=== PATIENT | female | born 1980 | race Two or more races ===

== ENCOUNTER 2020-05-05 05:56 | Observation (INO) | payer BC ==
[2020-05-05] MEDS ORDERED: Alum Hydrox/Mag Hydrox/Simeth 15 ML, Lidocaine 2% 15 ML PO ONE ×2 (06:54)
[2020-05-05] MEDS ORDERED: Ondansetron 4 MG/2 ML SDV IVPUSH ONE (06:54)
[2020-05-05] MEDS: Sodium Chloride 0.9% 10 ML Syringe FLUSH PRN ×3 (07:09→07:44)
[2020-05-05] MEDS ORDERED: fentaNYL 100 MCG/2 ML SDV IVPUSH ONE ×2 (07:11→09:31)
--- NOTE | 2020-05-05 07:15 | EDM.PDOC ---
ED HPI GENERAL MEDICAL PROBLEM - General Chief Complaint: Abdominal Pain Stated Complaint: ABDOMINAL PAIN Time Seen by Provider: 05/05/20 07:06 Source of Information: Reports: Patient, RN Notes Reviewed History Limitations: Reports: No Limitations - History of Present Illness INITIAL COMMENTS - FREE TEXT/NARRATIVE: 39-year-old female presents emergency department a complaint of epigastric pain, she has a history of gastric bypass done approximately 9 months prior. She states the pain started about 24 hours ago it does wax and wane it is in the epigastric region she has had some dry heaves and is nauseated. 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 Female Surgical History: Reports: Section Musculoskeletal Surgical History: Reports: Other (See Below) Other Musculoskeletal Surgeries/Procedures:: acl repair Social & Family History - Tobacco Use Smoking Status *Q: Former Smoker Used Tobacco, but Quit: No Second Hand Smoke Exposure: No - Caffeine Use Caffeine Use: Reports: None - Recreational Drug Use Recreational Drug Use: No ED ROS GENERAL - Review of Systems Review Of Systems: See Below Constitutional: Reports: No Symptoms Respiratory: Reports: No Symptoms Cardiovascular: Reports: No Symptoms GI/Abdominal: Reports: Abdominal Pain, Flatus, Nausea, Vomiting : Reports: No Symptoms ED EXAM, GI/ABD - Physical Exam Exam: See Below Exam Limited By: No Limitations General Appearance: Alert, WD/WN, No Apparent Distress Neck: Normal Inspection, Supple, Non-Tender, Full Range of Motion Respiratory/Chest: No Respiratory Distress, Lungs Clear, Normal Breath Sounds, No Accessory Muscle Use, Chest Non-Tender Cardiovascular: Regular Rate, Rhythm, No Murmur GI/Abdominal Exam: Normal Bowel Sounds, Soft, No Organomegaly, No Distention, Tender (Epigastric region) Course - Vital Signs Last Recorded V/S: Last Vital Signs Temp 96.4 F L 05/05/20 06:52 Pulse 42 L 05/05/20 09:01 Resp 16 05/05/20 06:52 BP 140/48 L 05/05/20 09:01 Pulse Ox 96 05/05/20 09:01 - Orders/Labs/Meds Orders: Active Orders 24 hr Category Date Time Status Sodium Chloride 0.9% [Normal Saline] 100 ml Med 05/05/20 07:30 Active IV ASDIRECTED Sodium Chloride 0.9% [Saline Flush] Med 05/05/20 06:53 Active 10 ml FLUSH ASDIRECTED PRN Saline Lock Insert [OM.PC] Routine Oth 05/05/20 06:53 Ordered Medication Orders Sodium Chloride (Normal Saline) 100 mls @ 3 mls/sec IV ASDIRECTED ROSALINDA Last Admin: 05/05/20 07:44 Dose: 3 mls/sec Documented by: MAYTE Sodium Chloride (Saline Flush) 10 ml FLUSH ASDIRECTED PRN PRN Reason: Keep Vein Open Last Admin: 05/05/20 07:44 Dose: 10 ml Documented by: Admin: 05/05/20 07:26 Dose: 10 ml Documented by: Admin: 05/05/20 07:09 Dose: 10 ml Documented by: DAE Labs: Laboratory Tests 05/05/20 05/05/20 05/05/20 Range/Units 07:12 07:12 07:13 WBC 7.3 (4.5-11.0) K/uL RBC 4.53 (3.30-5.50) M/uL Hgb 13.3 (12.0-15.0) g/dL Hct 40.9 (36.0-48.0) % MCV 90 (80-98) fL MCH 29 (27-31) pg MCHC 33 (32-36) % Plt Count 233 (150-400) K/uL Neut % (Auto) 68 H (36-66) % Lymph % (Auto) 24 (24-44) % [place] % (Auto) 6 (2-6) % Eos % (Auto) 2 (2-4) % Baso % (Auto) 0 (0-1) % Sodium 142 (140-148) mmol/L Potassium 4.1 (3.6-5.2) mmol/L Chloride 105 (100-108) mmol/L Carbon Dioxide 27 (21-32) mmol/L Anion Gap 9.6 (5.0-14.0) mmol/L BUN 14 (7-18) mg/dL Creatinine 1.0 (0.6-1.0) mg/dL Est Cr Clr Drug Dosing 70.71 mL/min Estimated GFR (MDRD) > 60 (>60) Glucose 92 (74-106) mg/dL Lactic Acid (0.4-2.0) mmol/L Calcium 8.4 L (8.5-10.1) mg/dL Total Bilirubin 0.5 (0.2-1.0) mg/dL AST 37 (15-37) U/L ALT 37 (12-78) U/L Alkaline Phosphatase 95 (46-116) U/L Troponin I (0.000-0.056) ng/mL Total Protein 7.7 (6.4-8.2) g/dL Albumin 3.6 (3.4-5.0) g/dL Globulin 4.1 H (2.3-3.5) g/dL Albumin/Globulin Ratio 0.9 L (1.2-2.2) Lipase 114 (73-393) U/L Urine Color (YELLOW) Urine Appearance (CLEAR) Urine pH (5.0-8.0) Ur Specific [place] (1.008-1.030) Urine Protein (NEGATIVE) mg/dL Urine Glucose (UA) (NEGATIVE) mg/dL Urine Ketones (NEGATIVE) mg/dL Urine Occult Blood (NEGATIVE) Urine Nitrite (NEGATIVE) Urine Bilirubin (NEGATIVE) Urine Urobilinogen (0.2-1.0) EU/dL Ur Leukocyte Esterase (NEGATIVE) Urine RBC (0-5) Urine WBC (0-5) Ur Epithelial Cells Amorphous Sediment Urine Bacteria Urine Mucus Urine HCG, Qual Negative 05/05/20 05/05/20 05/05/20 Range/Units 07:15 07:15 09:20 WBC (4.5-11.0) K/uL RBC (3.30-5.50) M/uL Hgb (12.0-15.0) g/dL Hct (36.0-48.0) % MCV (80-98) fL MCH (27-31) pg MCHC (32-36) % Plt Count (150-400) K/uL Neut % (Auto) (36-66) % Lymph % (Auto) (24-44) % [place] % (Auto) (2-6) % Eos % (Auto) (2-4) % Baso % (Auto) (0-1) % Sodium (140-148) mmol/L Potassium (3.6-5.2) mmol/L Chloride (100-108) mmol/L Carbon Dioxide (21-32) mmol/L Anion Gap (5.0-14.0) mmol/L BUN (7-18) mg/dL Creatinine (0.6-1.0) mg/dL Est Cr Clr Drug Dosing mL/min Estimated GFR (MDRD) (>60) Glucose (74-106) mg/dL Lactic Acid 1.0 (0.4-2.0) mmol/L Calcium (8.5-10.1) mg/dL Total Bilirubin (0.2-1.0) mg/dL AST (15-37) U/L ALT (12-78) U/L Alkaline Phosphatase (46-116) U/L Troponin I < 0.017 (0.000-0.056) ng/mL Total Protein (6.4-8.2) g/dL Albumin (3.4-5.0) g/dL Globulin (2.3-3.5) g/dL Albumin/Globulin Ratio (1.2-2.2) Lipase (73-393) U/L Urine Color Yellow (YELLOW) Urine Appearance Slightly cloudy A (CLEAR) Urine pH 6.5 (5.0-8.0) Ur Specific [place] 1.015 (1.008-1.030) Urine Protein Negative (NEGATIVE) mg/dL Urine Glucose (UA) Negative (NEGATIVE) mg/dL Urine Ketones Negative (NEGATIVE) mg/dL Urine Occult Blood Negative (NEGATIVE) Urine Nitrite Negative (NEGATIVE) Urine Bilirubin Negative (NEGATIVE) Urine Urobilinogen 0.2 (0.2-1.0) EU/dL Ur Leukocyte Esterase Negative (NEGATIVE) Urine RBC 0-5 (0-5) Urine WBC 0-5 (0-5) Ur Epithelial Cells Moderate Amorphous Sediment Not seen Urine Bacteria Moderate Urine Mucus Moderate Urine HCG, Qual Meds: Medications Generic Name Dose Route Start Last Admin Trade Name Freq PRN Reason Stop Dose Admin Sodium Chloride 100 mls @ 3 mls/sec 05/05/20 07:30 05/05/20 07:44 Normal Saline IV 3 mls/sec ASDIRECTED ROSALINDA Administration Sodium Chloride 10 ml 05/05/20 06:53 05/05/20 07:44 Saline Flush FLUSH 10 ml ASDIRECTED PRN Administration Keep Vein Open Discontinued Medications Generic Name Dose Route Start Last Admin Trade Name Freq PRN Reason Stop Dose Admin Al Hydroxide/Mg Hydroxide 15 0 ml 05/05/20 06:54 05/05/20 07:47 ml/ Lidocaine HCl 15 ml PO 05/05/20 06:55 Not Given ONETIME ONE Fentanyl 50 mcg 05/05/20 07:11 05/05/20 07:25 Sublimaze IVPUSH 05/05/20 07:12 50 mcg ONETIME ONE Administration Fentanyl 50 mcg 05/05/20 09:31 Sublimaze IVPUSH 05/05/20 09:32 ONETIME ONE Iopamidol 141 ml 05/05/20 07:24 05/05/20 07:44 Isovue-300 (61%) IV 05/05/20 07:25 141 ml ONETIME ONE Administration Ondansetron HCl 4 mg 05/05/20 06:54 05/05/20 07:15 Zofran IVPUSH 05/05/20 06:55 4 mg ONETIME ONE Administration Sodium Chloride 10 ml 05/05/20 07:24 05/05/20 07:26 Saline Flush FLUSH 05/05/20 07:25 Not Given ONETIME ONE Departure - Departure Time of Disposition: 09:37 Disposition: Admitted As Inpatient 66 Condition: Fair Clinical Impression: Epigastric pain - Discharge Information Referrals: Daina Moore DO [Primary Care Provider] - Forms: ED Department Discharge Sepsis Event Note (ED) - Evaluation Sepsis Screening Result: No Definite Risk - Focused Exam Vital Signs: Vital Signs Temp Pulse Resp BP Pulse Ox 05/05/20 09:01 42 L 140/48 L 96 05/05/20 06:52 96.4 F L 51 L 16 169/75 H 99 - My Orders Last 24 Hours: My Active Orders 05/05/20 07:30 Sodium Chloride 0.9% [Normal Saline] 100 ml IV ASDIRECTED - Assessment/Plan Last 24 Hours: My Active Orders 05/05/20 07:30 Sodium Chloride 0.9% [Normal Saline] 100 ml IV ASDIRECTED Plan: Assessment Acuity = acute Site and laterality = epigastric pain complicated patient with known history of gastric bypass surgery Etiology = unknown Manifestations = nausea vomiting Location of injury = Home Lab values = CBC, CMP, lactic acid, urinalysis unremarkable however CT scan does show fat stranding around the proximal Yany limb concern for fistula and or ulcer in that area Plan Call discussed case with Dr. Olivia general surgery 9 AM kindly agreed to come evaluate the patient in the emergency department plan for EGD, also discussed case with hospitalist on-call at [phone] kindly agreed to come and evaluate the patient in the hospital This note was dictated using [employer] voice recognition software please call with any questions on syntax or grammar.
[2020-05-05] MEDS ORDERED: Iopamidol 612 MG/ML 500 ML Multipack Bottle IV ONE (07:24)
[2020-05-05] MEDS ORDERED: Sodium Chloride 0.9% 10 ML Syringe FLUSH ONE (07:24)
[2020-05-05] MEDS ORDERED: Sodium Chloride 0.9% 100 ML IV SCH (07:30)
--- NOTE | 2020-05-05 08:07 | CRLCT ---
INDICATION: epigastric pain, Hx gastric bypass HISTORY: Epigastric pain. Gastric bypass. COMPARISON: None. TECHNIQUE: CT of the abdomen and pelvis. 141 cc of Isovue-300 IV. Coronal/sagittal reconstruction images. FINDINGS: Lung bases: There is no pleural or pericardial effusion. The heart size is normal. The lung bases demonstrate no acute airspace disease. There is no basilar pneumothorax. Abdomen/pelvis: Liver morphology is non cirrhotic. There is no perihepatic ascites. There are no inflammatory changes at the gallbladder. The spleen size is normal. There is no adrenal mass. There is no hydronephrosis. There is no perinephric fluid collection. There is no pancreatic mass, pancreatic duct dilation, or glandular atrophy. Bilateral adnexal cysts. These do not appear suspicious. There is no free air. Normal caliber appendix. This is seen best on image 85, series 2. The patient is post gastric bypass. There is mild wall thickening and fat stranding adjacent to the proximal Yany limb, and excluded stomach. Margins between the structures are obscured, and a gastrogastric fistula should be considered. Suggest correlation with water-soluble upper GI series. There is no drainable fluid collection. There is no obstruction of the Yany limb or pancreaticobiliary limb. Pending results from upper GI series, upper endoscopy/GI consultation may be obtained. Nonenlarged lymph nodes are present in the pelvis. There is no retroperitoneal or gastrohepatic ligament adenopathy. There is a retro aortic left renal vein. This is an anatomic variant. The bone windows demonstrate no lytic or blastic bone lesions. There is degenerative disc disease in the lumbar spine. The vertebral body heights are maintained on sagittal reconstruction images. IMPRESSION: 1. Yany-en-Y gastric bypass. No obstruction of the Yany limb or pancreaticobiliary limb. 2. There is subtle fat stranding and wall thickening present about the excluded stomach and proximal Yany limb. A gastrogastric fistula or ulcer may produce these findings. Suggest correlation with water-soluble upper GI series. Pending this exam, GI consultation/direct visualization may be obtained. 3. No drainable fluid collection or pneumoperitoneum. 4. Normal caliber appendix. 5. Bilateral adnexal cysts, which appear physiologic in a patient of this age. Largest is seen on the right, and appears unilocular, 3 cm in AP dimension. 6. No abdominal or pelvic lymphadenopathy by size criteria. Dictated by Tom Garcia MD @ 05/05/2020 8:06:43 AM Please note that all CT scans at this facility use dose modulation, iterative reconstruction, and/or weight-based dosing when appropriate to reduce radiation dose to as low as reasonably achievable. Dictated by: Tom Garcia MD @ 05/05/2020 08:06:49 (Electronically Signed)
[2020-05-05] MEDS ORDERED: Ondansetron 4 MG/2 ML SDV IV PRN (09:38)
[2020-05-05] MEDS ORDERED: Non-Formulary Medication 1 Each (Etonogestrel [Nexplanon] 68 MG) SQ SCH (09:45)
[2020-05-05] MEDS ORDERED: Pantoprazole 40 MG Vial IVPUSH SCH (09:45)
[2020-05-05] MEDS: Lactated Ringers 1,000 ML IV SCH ×2 (11:01→19:42)
[2020-05-05] MEDS: fentaNYL 100 MCG/2 ML SDV IVPUSH PRN (11:47)
--- NOTE | 2020-05-05 11:48 | PCM.HP.2 ---
H&P History of Present Illness - General Date of Service: 05/05/20 Admit Problem/Dx: Admission Diagnosis/Problem Admission Diagnosis/Problem Abdominal pain Source of Information: Patient, Provider History Limitations: Reports: No Limitations - History of Present Illness Initial Comments - Free Text/Narative: CC: It hurts up here (hold epigastrium) HPI: Monica presents to the emergency room today with 2 to 3 weeks of progressive upper abdominal pain with more acute worsening in the past 24 hours. She describes initially some mild achy pain that seem to come and go in the upper abdomen. This slowly got worse over the course of a couple of weeks and then acutely got worse 24 hours prior to admission. She is now complaining of moderately severe upper abdominal pain. The pain does not radiate. She is more comfortable when she is sitting up and the pain seems to increase when she lays down. She did not take any medications at home to try to make the pain feel b lesa. Food does not seem to make the pain any better or worse. She has had some nausea and dry heaves but no vomiting. She has not had any fevers or chills. No change in bowel or bladder habits. No cough or shortness of breath. No sick contacts or travel. She does have a history of gastric bypass about 9 months ago. This was done at [facility] in [place]. Laboratory work-up in the emergency room was unremarkable. A CT scan showed some inflammation surrounding the remnant stomach and there was concern that she may have an ulcer or potentially a fistula. The plan is for EGD tomorrow joanne munoz. I was asked to admit the patient for optimization prior to surgery tomorrow. 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 Female Surgical History: Reports: Section Musculoskeletal Surgical History: Reports: Other (See Below) Other Musculoskeletal Surgeries/Procedures:: acl repair Social & Family History - Family History Family Medical History: Noncontributory - Tobacco Use Smoking Status *Q: Never Smoker Used Tobacco, but Quit: No Second Hand Smoke Exposure: No - Caffeine Use Caffeine Use: Reports: None - Alcohol Use Alcohol Use History: No - Recreational Drug Use Recreational Drug Use: No H&P Review of Systems - Review of Systems: Review Of Systems: See Below Free Text/Narrative: A complete 12 point review of systems was obtained. Pertinent positives and negatives are noted in the history of present illness. All other systems were reviewed and were negative except as noted. Exam - Exam Exam: See Below - Vital Signs Vital Signs: Last Vital Signs Temp 35.8 C L 05/05/20 06:52 Pulse 59 L 05/05/20 09:45 Resp 14 05/05/20 09:45 BP 126/46 L 05/05/20 09:45 Pulse Ox 96 05/05/20 09:45 Weight: 98.702 kg - Exam Quality Assessment: No: Supplemental Oxygen General: Alert, Oriented, Cooperative. No: Mild Distress HEENT: Conjunctiva Clear, Mucosa Moist & Sunbright. No: Scleral Icterus Neck: Supple, Trachea Midline Lungs: Clear to Auscultation, Normal Respiratory Effort Cardiovascular: Regular Rate, Regular Rhythm GI/Abdominal Exam: Normal Bowel Sounds, Soft, No Distention, Tender Extremities: No Pedal Edema. No: Increased Warmth Peripheral Pulses: 2+: Dorsalis Pedis (L), Dorsalis Pedis (R) Skin: Warm, Dry Neuro Extensive - Mental Status: Alert, Oriented x3, Nl Response to Commands Neuro Extensive - Motor, Sensory, Reflexes: No: Dysarthria, Abnormal Motor, Tremor Psychiatric: Alert, Normal Affect - Patient Data Lab Results Last 24 hrs: Laboratory Results - last 24 hr 05/05/20 05/05/20 05/05/20 Range/Units 07:12 07:12 07:13 WBC 7.3 (4.5-11.0) K/uL RBC 4.53 (3.30-5.50) M/uL Hgb 13.3 (12.0-15.0) g/dL Hct 40.9 (36.0-48.0) % MCV 90 (80-98) fL MCH 29 (27-31) pg MCHC 33 (32-36) % Plt Count 233 (150-400) K/uL Neut % (Auto) 68 H (36-66) % Lymph % (Auto) 24 (24-44) % [place] % (Auto) 6 (2-6) % Eos % (Auto) 2 (2-4) % Baso % (Auto) 0 (0-1) % Sodium 142 (140-148) mmol/L Potassium 4.1 (3.6-5.2) mmol/L Chloride 105 (100-108) mmol/L Carbon Dioxide 27 (21-32) mmol/L Anion Gap 9.6 (5.0-14.0) mmol/L BUN 14 (7-18) mg/dL Creatinine 1.0 (0.6-1.0) mg/dL Est Cr Clr Drug Dosing 70.71 mL/min Estimated GFR (MDRD) > 60 (>60) Glucose 92 (74-106) mg/dL Lactic Acid (0.4-2.0) mmol/L Calcium 8.4 L (8.5-10.1) mg/dL Total Bilirubin 0.5 (0.2-1.0) mg/dL AST 37 (15-37) U/L ALT 37 (12-78) U/L Alkaline Phosphatase 95 (46-116) U/L Troponin I (0.000-0.056) ng/mL Total Protein 7.7 (6.4-8.2) g/dL Albumin 3.6 (3.4-5.0) g/dL Globulin 4.1 H (2.3-3.5) g/dL Albumin/Globulin Ratio 0.9 L (1.2-2.2) Lipase 114 (73-393) U/L Urine Color (YELLOW) Urine Appearance (CLEAR) Urine pH (5.0-8.0) Ur Specific [place] (1.008-1.030) Urine Protein (NEGATIVE) mg/dL Urine Glucose (UA) (NEGATIVE) mg/dL Urine Ketones (NEGATIVE) mg/dL Urine Occult Blood (NEGATIVE) Urine Nitrite (NEGATIVE) Urine Bilirubin (NEGATIVE) Urine Urobilinogen (0.2-1.0) EU/dL Ur Leukocyte Esterase (NEGATIVE) Urine RBC (0-5) Urine WBC (0-5) Ur Epithelial Cells Amorphous Sediment Urine Bacteria Urine Mucus Urine HCG, Qual Negative 05/05/20 05/05/20 05/05/20 Range/Units 07:15 07:15 09:20 WBC (4.5-11.0) K/uL RBC (3.30-5.50) M/uL Hgb (12.0-15.0) g/dL Hct (36.0-48.0) % MCV (80-98) fL MCH (27-31) pg MCHC (32-36) % Plt Count (150-400) K/uL Neut % (Auto) (36-66) % Lymph % (Auto) (24-44) % [place] % (Auto) (2-6) % Eos % (Auto) (2-4) % Baso % (Auto) (0-1) % Sodium (140-148) mmol/L Potassium (3.6-5.2) mmol/L Chloride (100-108) mmol/L Carbon Dioxide (21-32) mmol/L Anion Gap (5.0-14.0) mmol/L BUN (7-18) mg/dL Creatinine (0.6-1.0) mg/dL Est Cr Clr Drug Dosing mL/min Estimated GFR (MDRD) (>60) Glucose (74-106) mg/dL Lactic Acid 1.0 (0.4-2.0) mmol/L Calcium (8.5-10.1) mg/dL Total Bilirubin (0.2-1.0) mg/dL AST (15-37) U/L ALT (12-78) U/L Alkaline Phosphatase (46-116) U/L Troponin I < 0.017 (0.000-0.056) ng/mL Total Protein (6.4-8.2) g/dL Albumin (3.4-5.0) g/dL Globulin (2.3-3.5) g/dL Albumin/Globulin Ratio (1.2-2.2) Lipase (73-393) U/L Urine Color Yellow (YELLOW) Urine Appearance Slightly cloudy A (CLEAR) Urine pH 6.5 (5.0-8.0) Ur Specific [place] 1.015 (1.008-1.030) Urine Protein Negative (NEGATIVE) mg/dL Urine Glucose (UA) Negative (NEGATIVE) mg/dL Urine Ketones Negative (NEGATIVE) mg/dL Urine Occult Blood Negative (NEGATIVE) Urine Nitrite Negative (NEGATIVE) Urine Bilirubin Negative (NEGATIVE) Urine Urobilinogen 0.2 (0.2-1.0) EU/dL Ur Leukocyte Esterase Negative (NEGATIVE) Urine RBC 0-5 (0-5) Urine WBC 0-5 (0-5) Ur Epithelial Cells Moderate Amorphous Sediment Not seen Urine Bacteria Moderate Urine Mucus Moderate Urine HCG, Qual Result Diagrams: 05/05/20 07:12 05/05/20 07:12 Imaging Impressions Last 24 hrs: CT abd/pelvis-images personally reviewed-there is a small amount of stranding near the remnant stomach that raises some concern for a potential ulcer or fistula in the area. The radiologist did recommend direct visualization. No other acute findings in the abdomen. She is status post Yany-en-Y gastric bypass surgery. Sepsis Event Note - Evaluation Sepsis Screening Result: No Definite Risk - Focused Exam Vital Signs: Vital Signs Temp Pulse Resp BP Pulse Ox 05/05/20 09:45 59 L 14 126/46 L 96 05/05/20 09:01 42 L 140/48 L 96 05/05/20 06:52 35.8 C L 51 L 16 169/75 H 99 Date Exam was Performed: 05/05/20 Time Exam was Performed: 16:01 *Q Meaningful Use (ADM) - VTE Risk Assess *Q Each Risk Factor Represents 1 Point: Obesity ( BMI > 25 kg/m2) Total Score 1 Point Risk Factors: 1 Each Risk Factor Represents 2 Points: None Total Score 2 Point Risk Factors: 0 Each Risk Factor Represents 3 Points: None Total Score 3 Point Risk Factors: 0 Each Risk Factor Represents 5 Points: None Total Score 5 Point Risk Factors: 0 Venous Thromboembolism Risk Factor Score *Q: 1 - Problem List (1) Epigastric pain SNOMED Code(s): 69170822 ICD Code: R10.13 - EPIGASTRIC PAIN Status: Acute Current Visit: Yes (2) Status post gastric bypass for obesity SNOMED Code(s): 272799838, 923228263, 243399308, 606800810 ICD Code: Z98.84 - BARIATRIC SURGERY STATUS Status: Chronic Current Visit: Yes Problem List Initiated/Reviewed/Updated: Yes Orders Last 24hrs: Active Orders 24 hr Category Date Time Status Patient Status [ADT] Routine ADT 05/05/20 09:38 Active Antiembolic Devices [RC] .Routine Care 05/05/20 11:44 Ordered Height and Weight [RC] DAILY Care 05/05/20 09:38 Active Intake and Output [RC] QSHIFT Care 05/05/20 09:40 Active Oxygen Therapy [RC] PRN Care 05/05/20 09:38 Active Up ad Radha [RC] ASDIRECTED Care 05/05/20 09:38 Active VTE/DVT Education [RC] Per Unit Routine Care 05/05/20 09:38 Active Vital Signs [RC] Q4H Care 05/05/20 09:38 Active Clear Liquid Diet [DIET] Diet 05/05/20 Lunch Ordered Nothing per Oral After Midnight Diet [DIET] Diet 05/05/20 Dinner Active Calcium Carbonate [Tums] Med 05/05/20 12:00 Active 500 mg PO DAILY Lactated Ringers [Ringers, Lactated] 1,000 ml Med 05/05/20 09:45 Active IV ASDIRECTED Multivitamins with Iron [Child Chew Iron] Med 05/05/20 12:00 Active 1 tab PO DAILY Ondansetron [Zofran] Med 05/05/20 09:38 Active 8 mg IV Q4H PRN Pantoprazole [ProTONIX IV] Med 05/05/20 09:45 Active 80 mg IVPUSH .BOLUS Sodium Chloride 0.9% [Saline Flush] Med 05/05/20 06:53 Active 10 ml FLUSH ASDIRECTED PRN fentaNYL [Sublimaze] Med 05/05/20 09:41 Active 50 mcg IVPUSH Q6H PRN SCD [Sequential Compression Device] [OM.PC] Routine Oth 05/05/20 11:44 Ordered Saline Lock Insert [OM.PC] Routine Oth 05/05/20 06:53 Ordered Resuscitation Status Routine Resus Stat 05/05/20 09:38 Ordered Medication Orders Calcium Carbonate/Glycine (Tums) 500 mg PO DAILY ROSALINDA Fentanyl (Sublimaze) 50 mcg IVPUSH Q6H PRN PRN Reason: Pain (severe 7-10) Lactated Ringer's (Ringers, Lactated) 1,000 mls @ 100 mls/hr IV ASDIRECTED ROSALINDA Last Admin: 05/05/20 11:01 Dose: 125 mls/hr Documented by: RAMÓN Multivitamins/Iron (Child Chew Iron) 1 tab PO DAILY [facility] Ondansetron HCl (Zofran) 8 mg IV Q4H PRN PRN Reason: Nausea/Vomiting Pantoprazole Sodium (Protonix Iv) 80 mg IVPUSH .BOLUS ROSALINDA Sodium Chloride (Saline Flush) 10 ml FLUSH ASDIRECTED PRN PRN Reason: Keep Vein Open Last Admin: 05/05/20 07:44 Dose: 10 ml Documented by: Admin: 05/05/20 07:26 Dose: 10 ml Documented by: Admin: 05/05/20 07:09 Dose: 10 ml Documented by: DAE Assessment/Plan Comment:: ASSESSMENT AND PLAN - Epigastric abdominal pain-laboratory studies unremarkable. CT scan showed some inflammation around the remnant stomach. The plan is for direct visualization with EGD tomorrow. Differential includes ulceration versus less likely gastro- gastric fistula. Patient is comfortable at this time. She is in optimal achievable medical condition and is stable. The benefits of the surgery outw eigh the risks at this point. No personal or family history of difficulty with anesthesia. -Pain control -IV fluids -Surgical consultation for EGD in the morning Status post gastric bypass surgery-completed about 9 months prior to admission at [facility]. Maintenance issues - - DVT prophylaxis -mechanical - GI prophylaxis -PPI - Nutrition -clear liquids today, nothing by mouth after midnight - Harrison catheter -not indicated CODE STATUS -full code Admission justification -patient will be referred observation status for symptomatic management and EGD in the morning Disposition -I would anticipate discharge home after the hospital stay Aric Ramirez M.D. - Mortality Measure Prognosis:: Good
[2020-05-05] MEDS ORDERED: Multivitamins with Iron Tab.Chew PO SCH (12:00)
[2020-05-05] MEDS ORDERED: Calcium Carbonate 500 MG Tab.Chew PO SCH (12:00)
[2020-05-05] MEDS ORDERED: Acetaminophen 325 MG Tab PO PRN (16:02)
[2020-05-05] MEDS ORDERED: oxyCODONE 5 MG Tab PO PRN (16:03)
[2020-05-05] MEDS: Pantoprazole 40 MG Vial IVPUSH SCH (16:38)
[2020-05-06] MEDS: fentaNYL 100 MCG/2 ML SDV IVPUSH PRN (02:35)
[2020-05-06] MEDS: Pantoprazole 40 MG Vial IVPUSH SCH (04:19)
[2020-05-06] MEDS: Lactated Ringers 1,000 ML IV SCH (05:00)
[2020-05-06] MEDS ORDERED: Propofol 200 MG/20 ML SDV ONE (07:08)
[2020-05-06] MEDS ORDERED: fentaNYL 100 MCG/2 ML SDV ONE (07:08)
[2020-05-06] MEDS ORDERED: Midazolam 1 MG/ML 2 ML SDV ONE (07:08)
--- NOTE | 2020-05-08 15:46 | DISCH ---
FINAL DIAGNOSES: 1. Deep marginal ulcer, status post Yany-en-Y gastric bypass. 2. History of morbid obesity. OPERATIVE PROCEDURE: Upper gastrointestinal endoscopy with biopsies of gastric pouch for Jeana (done on 05/06/2020). SUMMARY: This 39-year-old, status post a Yany-en-Y gastric bypass done in [facility] in [place] in August of 2019, was presenting with several-day history of worsening epigastric pain. CT scan was obtained which showed quite a bit of thickening around the area of the gastrojejunostomy, and upper endoscopy confirmed the quite large and deep marginal ulcer. The other complicating finding is that her gastric pouch is extremely large. It measured from the esophagogastric junction to the gastrojejunostomy at 10 cm in a spherical configuration, which would make this patient quite prone to have problems with marginal ulcers over time. The patient was started after admission yesterday on q.12 hours Protonix and does feel somewhat better this morning. She will be discharged on twice a day Protonix for a month and then Protonix daily for another 2 months, would be my thinking, and then perhaps go off the Protonix and will have a repeat endoscopy sometime around a month after being off Protonix. If at that point she has recurrent ulcer or significant amounts of inflammation, the consideration would be to revise the gastric bypass, creating a much smaller pouch. The patient will be out of town for the next couple of weeks. He will be following up with Edna Young at [facility] on 05/29/2020. She is instructed, if she has worsening pain, then she should report to the emergency room at that point. Apart from the Protonix, she will be continued on her usual medications, which include folic acid, Multi-Wilda mineral gummies, which she will probably be instructed to switch out of at the next appointment and calcium carbonate.
--- NOTE | 2020-05-09 14:28 | OR ---
DATE OF PROCEDURE: 05/06/2020 SURGEON: Дмитрий Olivia MD PREOPERATIVE DIAGNOSIS: Epigastric pain status post Yany-en-Y gastric bypass. POSTOPERATIVE DIAGNOSIS: Epigastric pain status post Yany-en-Y gastric bypass with: 1. Deep marginal ulcer. 2. Very large gastric pouch. OPERATIVE PROCEDURE: Esophagogastroduodenoscopy with biopsy of the gastric pouch for CLOtest. ANESTHESIA: IV sedation. INDICATION FOR PROCEDURE: This is a 39-year-old status post a Yany-en-Y gastric bypass done in [facility] in [place] in August of 2019. She presented now to the emergency room yesterday with ongoing epigastric pain quite suggestive of pouch gastritis with marginal ulcer. She was admitted overnight, on IV Protonix, and is showing improvement in terms of symptoms overnight. The plan is to proceed with upper GI endoscopy with biopsies and polypectomy if needed. Potential risks including bleeding and perforation were discussed, and the patient wishes to proceed. DETAILS OF PROCEDURE: The patient was taken to the operating room and placed in a left lateral decubitus position. IV sedation was administered after which the upper GI endoscope was passed orally through the length of the esophagus into the gastric pouch, from there through the gastrojejunostomy and roughly 20 cm into the Yany limb. The upper esophageal sphincter, hypopharynx, larynx, and esophageal body were all unremarkable. As one passed into the area of esophagogastric junction, no significant hiatal hernia was present. Quite striking and with a very large gastric pouch, which was involved, more or less diffuse gastritis. At the esophagogastric junction, on the jejunal side, there was a quite deep appearing marginal ulcer measuring about 1.5 to 2 cm in maximal dimension. This was covered with fibrinous exudate with an otherwise quite deep cavity in that area. Beyond that, the Yany limb was unremarkable. At this point, biopsy obtained from the gastric pouch and sent for CLOtest for H. pylori. Minimal bleeding from the biopsy site was seen and the procedure then concluded. The patient was taken to the recovery room in satisfactory condition. The patient will be discharged home later today. She will be continuing the Protonix. We will give her one additional IV dose prior to discharge, then begin 40 mg orally b.i.d. x1 month and then one daily. The patient is going to be out of town for the next couple of weeks, and she will be set up to see Edna Young in [facility] on Friday05/29/2020. At that point, full bariatric labs should be drawn. The patient with a very large gastric pouch at this point is likely to have ongoing problems with marginal ulcer formation and/or long-term requirements of proton pump inhibitor use and may benefit from a revision of both. This will be reviewed over time depending on her ongoing symptoms and preferences. Дмитрий Olivia MD /[id number]
== END 2020-05-06 09:45 | disposition home or self-care (01) ==
LOC: JP.ED 05:56 → JP.ICU 10:36
PROVIDERS: ADMIT Internal Medicine; ATTEND Surgery
DX: K29.70 Gastritis, unspecified, without bleeding (principal); K28.9 Gastrojejunal ulcer, unspecified as acute or chronic, without hemorrhage or perforation; Z98.84 Bariatric surgery status; Z79.899 Other long term (current) drug therapy; Z87.891 Personal history of nicotine dependence
CPT/HCPCS: 36415; 43239; 74177; 80053; 81001; 81025; 83605; 83690; 84484; 85025; 87081; 96374; 96375; 96376; 99285; A9270; C9113; J2250; J2405; J2704; J3010; J7050; J7120; Q9967

== ENCOUNTER 2020-09-15 05:05 | Day surgery (SDC) | payer BC ==
[2020-09-15] MEDS ORDERED: Glycopyrrolate 0.2 MG/ML 2 ML SDV IVPUSH ONE (05:57)
[2020-09-15] MEDS ORDERED: MVI, Adult with Vitamin K 10 ML, Thiamine 200 MG, Chromium/Copper/Mang/Selen/Zn 1 ML in... IV ONE ×8 (05:57→07:15)
[2020-09-15] MEDS ORDERED: Cyanocobalamin (Vitamin B12) 1,000 MCG/ML SDV IM ONE (05:57)
[2020-09-15] MEDS ORDERED: Lactated Ringers 1,000 ML IV SCH (06:00)
[2020-09-15] MEDS ORDERED: Dextrose 5%-Lactated Ringers 1,000 ML IV SCH (06:00)
[2020-09-15] MEDS ORDERED: Lactated Ringers 1,000 ML IV ONE (06:24)
[2020-09-15] MEDS ORDERED: Midazolam 1 MG/ML 2 ML SDV ONE (07:22)
[2020-09-15] MEDS ORDERED: fentaNYL 100 MCG/2 ML SDV ONE (07:22)
[2020-09-15] MEDS ORDERED: Propofol 200 MG/20 ML SDV ONE (07:22)
--- NOTE | 2020-09-17 12:47 | OR ---
DATE OF PROCEDURE: 09/15/2020 SURGEON: Дмитрий Olivia MD PREOPERATIVE DIAGNOSIS: History of a large marginal ulcer. POSTOPERATIVE DIAGNOSIS: Healed marginal ulcer with continued [id number] diffuse pouch gastritis in the setting of a very large gastric pouch. OPERATIVE PROCEDURE: Upper gastrointestinal endoscopy with biopsies of gastric pouch for CLOtest. ANESTHESIA: IV sedation. INDICATION FOR PROCEDURE: This is a 40-year-old status post Yany-en-Y gastric bypass done in [place] in 2018. She presented this summer with severe upper abdominal pain and endoscopy showed a very large marginal ulcer with a very large gastric pouch. The patient has been on Protonix 40 mg b.i.d. If she takes the medication without missing the dose, she feels reasonably well, but if she misses even a single dose, she feels heartburn and epigastric discomfort similar to when she had the marginal ulcer. For followup, she will undergo a repeat upper endoscopy. Potential risks including bleeding and perforation were discussed, and the patient wishes to proceed. DETAILS OF PROCEDURE: The patient was taken to the operating room and placed in a left lateral position. IV sedation was administered, after which the upper GI endoscope was passed orally through the length of the esophagus into the gastric pouch and from there through the gastrojejunostomy roughly 20 cm into the Yany limb. At this point, the esophagus and EG junction were noted to be unremarkable. The patient had as previously noted a very large gastric pouch measuring around 11 cm. This was involved with diffuse [id number] redness and edema, but no erosions or ulcers were seen. The previously identified marginal ulcer at this point was now healed and there is no stricturing of the gastrojejunostomy. Scope was passed 20 cm distally into the Yany limb with no additional abnormalities being noted. At this point, the patient had biopsies obtained from the gastric pouch and sent for CLOtest for H pylori. No bleeding from the biopsy sites was seen and the procedure was then concluded. At this point, the plan will be to continue the patient on Protonix b.i.d. regimen. 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 The patient will be following up with Edna Young in roughly 1 month. Дмитрий Olivia MD /[id number]
== END 2020-09-15 10:09 | disposition home or self-care (01) ==
LOC: JP.SDS 05:05
PROVIDERS: ATTEND Surgery
DX: K29.70 Gastritis, unspecified, without bleeding (principal); E66.9 Obesity, unspecified; Z87.19 Personal history of other diseases of the digestive system; Z88.8 Allergy status to other drugs, medicaments and biological substances
CPT/HCPCS: 43239; 81025; 87081; J2250; J2704; J3010; J3420; J7120

== ENCOUNTER 2021-09-20 09:53 | Emergency (ER) | payer BC ==
--- NOTE | 2021-09-20 10:23 | EDM.PDOC ---
ED HPI GENERAL MEDICAL PROBLEM - General Chief Complaint: Abdominal Pain Stated Complaint: ABDOMINAL PAIN Time Seen by Provider: 09/20/21 10:05 Source of Information: Reports: Patient, Old Records History Limitations: Reports: No Limitations - History of Present Illness INITIAL COMMENTS - FREE TEXT/NARRATIVE: Monica 41-year-old female presenting to the ED for evaluation of epigastric abdominal pain. This patient has a history for a Yany-en-Y gastric bypass done in 2019 by a surgeon in [place]. She was seen here on 09/15/2020 for epigastric pain and was diagnosed with a gastric ulcer after an endoscopy was performed with Dr. Olivia. She was started on pantoprazole which she finished after being on it for a year just prior to the onset of her symptoms. The patient reports similar pain as when she experienced her gastric ulcer last year. She denies any nausea or vomiting, hematemesis, coffee-ground emesis, black or tarry stools, or hematochezia. She has not had any lightheadedness or dizziness. She denies any change in appetite. Upper Abdomen Pain Score (Numeric/FACES): 8 - Related Data Allergies Allergy/AdvReac Type Severity Reaction Status Date / Time NSAIDS (Non-Steroidal AdvReac Other Verified 09/20/21 10:12 Anti-Inflamma Home Meds: Home Meds Calcium Carbonate [Calcium] 500 mg PO DAILY 05/05/20 [History] Etonogestrel [Nexplanon] 68 mg SQ ASDIRECTED 05/05/20 [History] Folic Acid/Multivit-Min/Lutein [Multi-Vitamin Gummies] 1 each PO DAILY 05/05/20 [History] Pantoprazole Sodium [Protonix] 40 mg PO BID #60 tablet. 05/06/20 [Rx] Pantoprazole [ProTONIX] 40 mg PO DAILY #30 tab.cr 09/20/21 [Rx] Past Medical History Cardiovascular History: Reports: Other (See Below) Other Cardiovascular History: normally bradycardia [employer] History: Reports: - Past Surgical History Cardiovascular Surgical History: Reports: None GI Surgical History: Reports: Bariatric Procedure, EGD Other GI Surgeries/Procedures: Bariatric procedure Aug 2019 [facility]. Female Surgical History: Reports: Section Musculoskeletal Surgical History: Reports: Other (See Below) Other Musculoskeletal Surgeries/Procedures:: acl repair Social & Family History - Family History Family Medical History: No Pertinent Family History - Caffeine Use Caffeine Use: Reports: Coffee ED ROS GENERAL - Review of Systems Review Of Systems: See Below Constitutional: Reports: No Symptoms HEENT: Reports: No Symptoms Respiratory: Reports: No Symptoms Cardiovascular: Reports: No Symptoms Endocrine: Reports: No Symptoms GI/Abdominal: Reports: Abdominal Pain (Epigastric pain) : Reports: No Symptoms Musculoskeletal: Reports: No Symptoms Skin: Reports: No Symptoms Neurological: Reports: No Symptoms Psychiatric: Reports: No Symptoms Hematologic/Lymphatic: Reports: No Symptoms Immunologic: Reports: No Symptoms ED EXAM, GI/ABD - Physical Exam Exam: See Below Exam Limited By: No Limitations General Appearance: Alert, No Apparent Distress, Anxious Eyes: Bilateral: EOMI Throat/Mouth: Normal Oropharynx, Normal Voice, No Airway Compromise Head: Atraumatic, Normocephalic Neck: Normal Inspection, Supple Respiratory/Chest: No Respiratory Distress, Lungs Clear, Normal Breath Sounds Cardiovascular: Normal Peripheral Pulses, Regular Rate, Rhythm, No Murmur GI/Abdominal Exam: Normal Bowel Sounds, Soft, Tender (Epigastric tenderness to palpation). No: Guarding, Rigid, Rebound Extremities: Normal Inspection Neurological: Alert, Oriented, Normal Cognition, No Motor/Sensory Deficits Psychiatric: Normal Affect, Normal Mood Skin Exam: Warm, Dry Course - Vital Signs Last Recorded V/S: Last Vital Signs Temp 36.7 C 09/20/21 10:03 Pulse 51 L 09/20/21 12:25 Resp 20 09/20/21 10:03 BP 152/77 H 09/20/21 12:25 Pulse Ox 98 09/20/21 12:25 - Orders/Labs/Meds Orders: Active Orders 24 hr Category Date Time Status Abdomen 2V AP Flat Upright [CR] Stat Exams 09/20/21 12:09 Taken Pantoprazole [ProTONIX] Med 09/20/21 12:00 Active 40 mg PO DAILY Isolation [COMM] Stat Oth 09/20/21 10:13 Ordered Medication Orders Pantoprazole Sodium (Pantoprazole 40 Mg Tab.Cr) 40 mg PO DAILY [facility] Last Admin: 09/20/21 11:52 Dose: 40 mg Documented by: PREILOR Labs: Laboratory Tests 09/20/21 09/20/21 09/20/21 Range/Units 10:10 10:10 10:10 WBC 10.4 (4.5-11.0) K/uL RBC 4.66 (3.30-5.50) M/uL Hgb 13.6 (12.0-15.0) g/dL Hct 41.4 (36.0-48.0) % MCV 89 (80-98) fL MCH 29 (27-31) pg MCHC 33 (32-36) % Plt Count 250 (150-400) K/uL Neut % (Auto) 72.4 H (36-66) % Lymph % (Auto) 21.0 L (24-44) % Madison % (Auto) 5.2 (2-6) % Eos % (Auto) 1.1 L (2-4) % Baso % (Auto) 0.3 (0-1) % Sodium 144 (140-148) mmol/L Potassium 4.5 (3.6-5.2) mmol/L Chloride 104 (100-108) mmol/L Carbon Dioxide 29 (21-32) mmol/L Anion Gap 10.8 (5.0-14.0) mmol/L BUN 14 (7-18) mg/dL Creatinine 0.9 (0.6-1.0) mg/dL Est Cr Clr Drug Dosing 77.01 mL/min Estimated GFR (MDRD) > 60 (>60) Glucose 85 (74-106) mg/dL Lactic Acid 0.9 (0.4-2.0) mmol/L Calcium 8.4 L (8.5-10.1) mg/dL Total Bilirubin 0.4 (0.2-1.0) mg/dL AST 22 (15-37) U/L ALT 27 (12-78) U/L Alkaline Phosphatase 88 (46-116) U/L Total Protein 7.2 (6.4-8.2) g/dL Albumin 3.8 (3.4-5.0) g/dL Globulin 3.4 (2.3-3.5) g/dL Albumin/Globulin Ratio 1.1 L (1.2-2.2) Lipase 116 (73-393) U/L Influenza Type A RNA (NEGATIVE) RSV RNA (INAAT) (NEGATIVE) Influenza Type B RNA (NEGATIVE) SARS-CoV-2 RNA (TAMIKO) (NEGATIVE) 09/20/21 Range/Units 10:16 WBC (4.5-11.0) K/uL RBC (3.30-5.50) M/uL Hgb (12.0-15.0) g/dL Hct (36.0-48.0) % MCV (80-98) fL MCH (27-31) pg MCHC (32-36) % Plt Count (150-400) K/uL Neut % (Auto) (36-66) % Lymph % (Auto) (24-44) % Madison % (Auto) (2-6) % Eos % (Auto) (2-4) % Baso % (Auto) (0-1) % Sodium (140-148) mmol/L Potassium (3.6-5.2) mmol/L Chloride (100-108) mmol/L Carbon Dioxide (21-32) mmol/L Anion Gap (5.0-14.0) mmol/L BUN (7-18) mg/dL Creatinine (0.6-1.0) mg/dL Est Cr Clr Drug Dosing mL/min Estimated GFR (MDRD) (>60) Glucose (74-106) mg/dL Lactic Acid (0.4-2.0) mmol/L Calcium (8.5-10.1) mg/dL Total Bilirubin (0.2-1.0) mg/dL AST (15-37) U/L ALT (12-78) U/L Alkaline Phosphatase (46-116) U/L Total Protein (6.4-8.2) g/dL Albumin (3.4-5.0) g/dL Globulin (2.3-3.5) g/dL Albumin/Globulin Ratio (1.2-2.2) Lipase (73-393) U/L Influenza Type A RNA Negative (NEGATIVE) RSV RNA (INAAT) Negative (NEGATIVE) Influenza Type B RNA Negative (NEGATIVE) SARS-CoV-2 RNA (TAMIKO) Positive H (NEGATIVE) Meds: Medications Generic Name Dose Route Start Last Admin Trade Name Freq PRN Reason Stop Dose Admin Pantoprazole Sodium 40 mg 09/20/21 12:00 09/20/21 11:52 Pantoprazole 40 Mg Tab.Cr PO 40 mg DAILY ROSALINDA Administration - Radiology Interpretation Free Text/Narrative:: 2 view abdomen x-ray was obtained and reviewed. There is no free air in the abdomen. There is no evidence for obstruction. Previous Yany-en-Y is noted. - Re-Assessments/Exams Free Text/Narrative Re-Assessment/Exam: 09/20/21 12:06 I reviewed the patient's labs showing a normal CBC and comprehensive metabolic panel. Her lactate is normal at 0.9 and her lipase is normal at 116. The patient was given pantoprazole 40 mg by mouth for suspected gastric ulcer. She is positive for COVID-19. My plan is to discharge her home and have her continue with the pantoprazole 40 mg daily. We will arrange for her to follow-up with Dr. Olivia for reevaluation. Departure - Departure Time of Disposition: 13:01 Disposition: Home, Self-Care 01 Clinical Impression: COVID-19, History of Yany-en-Y gastric bypass Gastric ulcer Qualifiers: Gastric ulcer chronicity: acute Gastric ulcer complication status: without hemorrhage or perforation Qualified Code(s): K25.3 - Acute gastric ulcer without hemorrhage or perforation - Discharge Information Instructions: 10 Things You Can Do to Manage Your COVID-19 Symptoms at Home - [facility] (05/18/2021), COVID-19: What to Do If You Are Sick- [facility] (01/17/2021), Peptic Ulcer Referrals: PCP,None [Primary Care Provider] - Forms: ED Department Discharge Care Plan Goals: Your work-up today shows that you are positive for COVID-19. This may be contributing to the epigastric discomfort. In addition, because of the gastric Yany-en-Y you may also have developed an ulcer. We are going to start you back on the pantoprazole (Protonix daily) and have you follow-up with Dr. Olivia in 10 days. In the meantime, you should go home and isolate for 10 days. Sepsis Event Note (ED) - Evaluation Sepsis Screening Result: No Definite Risk - Focused Exam Vital Signs: Vital Signs Temp Pulse Resp BP Pulse Ox 09/20/21 12:25 51 L 152/77 H 98 09/20/21 11:23 53 L 155/81 H 96 09/20/21 10:03 36.7 C 61 20 173/83 H 97 - Problem List & Annotations (1) COVID-19 SNOMED Code(s): 659739735 Code(s): U07.1 - COVID-19 Status: Acute Priority: High Current Visit: Yes (2) History of Yany-en-Y gastric bypass SNOMED Code(s): 349485600 Code(s): Z98.84 - BARIATRIC SURGERY STATUS Status: Chronic Priority: Medium Current Visit: Yes (3) Gastric ulcer SNOMED Code(s): 401267397 Code(s): K25.9 - GASTRIC ULCER, UNSP ACUTE OR CHRONIC, W/O HEMOR OR PERF Status: Acute Priority: High Current Visit: Yes Qualifiers: Gastric ulcer chronicity: acute Gastric ulcer complication status: without hemorrhage or perforation Qualified Code(s): K25.3 - Acute gastric ulcer without hemorrhage or perforation - Problem List Review Problem List Initiated/Reviewed/Updated: Yes - My Orders Last 24 Hours: My Active Orders 09/20/21 10:13 Isolation [COMM] Stat 09/20/21 12:00 Pantoprazole [ProTONIX] 40 mg PO DAILY 09/20/21 12:09 Abdomen 2V AP Flat Upright [CR] Stat - Assessment/Plan Last 24 Hours: My Active Orders 09/20/21 10:13 Isolation [COMM] Stat 09/20/21 12:00 Pantoprazole [ProTONIX] 40 mg PO DAILY 09/20/21 12:09 Abdomen 2V AP Flat Upright [CR] Stat
[2021-09-20 11:00] LABS: CORONAVIRUS COVID-19 NAA POSITIVE (NEGATIVE)
[2021-09-20] MEDS ORDERED: Pantoprazole 40 MG Tab.CR PO SCH (12:00)
--- NOTE | 2021-09-20 13:26 | CR ---
Abdomen 2V AP Flat Upright CLINICAL HISTORY: Epigastric pain FINDINGS: No free air is identified. Small intestinal configuration is nonacute. Patient has had previous gastric surgery. There is some fecal retention. IMPRESSION: Nonacute intestinal gas pattern Fecal retention
== END 2021-09-20 13:29 | disposition home or self-care (01) ==
LOC: JP.ED 09:53
DX: K25.3 Acute gastric ulcer without hemorrhage or perforation (principal); U07.1 COVID-19; Z98.84 Bariatric surgery status; Z88.8 Allergy status to other drugs, medicaments and biological substances; Z20.822 Contact with and (suspected) exposure to COVID-19
CPT/HCPCS: 0241U; 36415; 74019; 80053; 83605; 83690; 85025; 99284; A9270

== ENCOUNTER 2022-03-04 05:17 | Day surgery (SDC) | payer BC ==
[2022-03-04] MEDS ORDERED: Lactated Ringers 1,000 ML IV SCH (06:00)
[2022-03-04] MEDS: Nozin Nasal Sanitizer NASBOTH SCH ×4 (06:09→20:14)
[2022-03-04] MEDS ORDERED: Bupivacaine 0.5% 30 ML SDV ONE (06:51)
[2022-03-04] MEDS ORDERED: Scopolamine 1.5 MG Transdermal Patch TOP ONE (07:07)
[2022-03-04] MEDS ORDERED: Midazolam 1 MG/ML 2 ML SDV ONE (07:22)
[2022-03-04] MEDS ORDERED: fentaNYL 100 MCG/2 ML SDV ONE ×2 (07:22→09:34)
[2022-03-04] MEDS ORDERED: Propofol 200 MG/20 ML SDV ONE ×3 (07:22→09:11)
[2022-03-04] MEDS ORDERED: ceFAZolin 2 GM in Premix Bag 1 BAG IV ONE (07:30)
[2022-03-04] MEDS ORDERED: Ondansetron 4 MG/2 ML SDV ONE (08:12)
[2022-03-04] MEDS ORDERED: Dexamethasone 4 MG/ML SDV ONE (08:12)
[2022-03-04] MEDS ORDERED: oxyCODONE 5 MG Tab PO PRN (10:00)
[2022-03-04] MEDS ORDERED: Sodium Chloride 0.9% 1,000 ML IV SCH (10:00)
[2022-03-04] MEDS ORDERED: HYDROmorphone 0.5 MG/0.5 ML Syringe IVPUSH PRN (10:00)
[2022-03-04] MEDS ORDERED: Ondansetron 4 MG/2 ML SDV IVPUSH PRN (10:00)
[2022-03-04] MEDS ORDERED: traMADol 50 MG Tab PO PRN (10:00)
[2022-03-04] MEDS ORDERED: ETONOGESTREL 68 MG SQ SCH (10:15)
[2022-03-04] MEDS: Acetaminophen 500 MG Tab PO SCH ×4 (11:49→21:15)
[2022-03-04] MEDS: ceFAZolin 1 GM in Sodium Chloride 0.9% 50 ML IV SCH ×2 (16:19→23:52)
[2022-03-04] MEDS: oxyCODONE 5 MG Tab PO PRN (16:20)
[2022-03-04] MEDS: Docusate Sodium 100 MG Cap PO SCH ×2 (19:39→20:14)
[2022-03-04] MEDS ORDERED: Nozin Nasal Sanitizer NASBOTH SCH (21:00)
[2022-03-05] MEDS: Acetaminophen 500 MG Tab PO SCH ×2 (04:23→09:07)
[2022-03-05] MEDS: Pantoprazole 40 MG Tab.CR PO SCH ×2 (07:11→08:31)
[2022-03-05] MEDS: ceFAZolin 1 GM in Sodium Chloride 0.9% 50 ML IV SCH (07:11)
[2022-03-05] MEDS: Docusate Sodium 100 MG Cap PO SCH (08:33)
[2022-03-05] MEDS: Nozin Nasal Sanitizer NASBOTH SCH (08:33)
[2022-03-05] MEDS ORDERED: Enoxaparin 30 MG/0.3 ML Syringe SUBCUT SCH (09:00)
[2022-03-05] MEDS: oxyCODONE 5 MG Tab PO PRN (09:07)
== END 2022-03-05 13:55 | disposition home or self-care (01) ==
LOC: JP.SDS 05:17 → JP.MS 10:00 → JP.SDS 03-05 13:55
PROVIDERS: ATTEND Specialist
DX: M17.11 Unilateral primary osteoarthritis, right knee (principal); F32.A Depression, unspecified; Z98.890 Other specified postprocedural states; Z79.899 Other long term (current) drug therapy; Z88.8 Allergy status to other drugs, medicaments and biological substances
CPT/HCPCS: 27446; 36415; 73560; 80053; 81025; 85027; 97110; 97116; 97162; 97165; 97530; 97535; A9270; C1713; J0690; J1100; J1650; J2250; J2405; J2704; J3010; J3490; J7030; J7120